=== PATIENT | female | born 1995 | race Caucasian/White ===

== ENCOUNTER 2016-12-10 16:34 | Emergency (ER) | payer MEDICAID ==
[~2016-12-10] VITALS: Ht 154.9 cm; Wt 49.9 kg
[2016-12-10 16:50] VITALS: BP 126/96
--- NOTE | 2016-12-10 21:10 | NUR ---
PATIENT LEFT WITHOUT BEING SEEN BY DR. CHEN. NO FURTHER CARE PROVIDED FOR PATIENT.
== END 2016-12-10 21:10 | disposition left against medical advice (07) ==
LOC: MED 16:34
DX: N89.8 Other specified noninflammatory disorders of vagina (principal); Z53.21 Procedure and treatment not carried out due to patient leaving prior to being seen by health care provider

== ENCOUNTER 2016-12-13 15:10 | Emergency (ER) | payer MEDICAID ==
[~2016-12-13] VITALS: Ht 154.9 cm; Wt 49.9 kg
[~2016-12-13 15:10] MED LIST: TYLENOL
[2016-12-13 15:20] VITALS: BP 114/67
--- NOTE | 2016-12-13 19:34 | NUR ---
PATIENT AMBULATED TO ER BED 5.
--- NOTE | 2016-12-13 20:03 | NUR ---
Patient being evaluated by physician at bedside.
[2016-12-13] MEDS ORDERED: AZITHROMYCIN 250 MG TAB PO ONE (20:20)
[2016-12-13] MEDS ORDERED: cefTRIAXone 250 MG in LIDOCAINE 1% ED 0.9 ML IM ONE (20:20)
[2016-12-13 21:05] VITALS: BP 122/64
--- NOTE | 2016-12-13 21:05 | NUR ---
Patient discharged with v/s stable. Written and verbal after care instructions given and explained. Patient alert, oriented and verbalized understanding of instructions. Ambulatory with steady gait. All questions addressed prior to discharge. ID band removed. Patient advised to follow up with PMD. Rx of Phenergan DM given. Patient educated on indication of medication including possible reaction and side effects. Opportunity to ask questions provided and answered.
--- NOTE | 2016-12-16 17:55 | NUR ---
ADDENDUM: POSITIVE CHLAMYDIA.PATIENT CALLED AND PICKING UP PRESCRIPTION.
--- NOTE | 2016-12-16 17:55 | NUR ---
ADDENDUM: NEW PRESCRIPTION OF DOXYCYCLINE 100MG.TAKE 1 CAP. BID #20 CAPS
[2016-12-28] MEDS ORDERED: DOXYCYCLINE HY200 MG PO (15:49)
[2016-12-28] MEDS ORDERED: HURRICAINE MC (15:49)
[2016-12-28] MEDS ORDERED: TYLENOL325 M1 PO (15:49)
[2016-12-28] MEDS ORDERED: AMOXICILLIN500 MG PO (15:49)
[2016-12-28] MEDS ORDERED: MOTRIN600 MG PO (17:24)
== END 2016-12-13 21:05 | disposition home or self-care (01) ==
LOC: MED 15:10
DX: A64 Unspecified sexually transmitted disease (principal); J02.9 Acute pharyngitis, unspecified
CPT/HCPCS: 36415; 81002; 81025; 87491; 96372; 99283; J0696; J2001

== ENCOUNTER 2016-12-26 10:25 | Inpatient (IN) | payer MEDICAID ==
[~2016-12-26] VITALS: Ht 154.9 cm; Wt 45.4 kg
[2016-12-26 10:35] VITALS: BP 117/69
--- NOTE | 2016-12-26 10:41 | NUR ---
Pateint ambulated to bed 06.
--- NOTE | 2016-12-26 10:48 | NUR ---
PT PRESENTS TO ER W/C/O VAGINAL DISCHARGE;TONSILITIS AND FEVER. PT STATES SHE WAS SEEN 2 WEEKS AGO AND DX W/GONORRHEA BUT HAS NOT BEEN COMPLIANT W/ABX. PT HAS A SWOLLEN TONSIL;PT FEELS NAUSEOUS BUT DENIES VOMITTING;PT STATES VAGINAL DISCHARGE IS PINK IN COLOR AND HAS OFFENSIVE SMELL;MILD ITCHINESS ON GENITALIA;SKIN IS PINK/WARM/DRY; AAOX4 WITH EVEN AND STEADY GAIT; LUNGS CLEAR BL; HR EVEN AND REGULAR; PT DENIES ANY FEVER, CP, SOB, OR COUGH AT THIS TIME; PATIENT STATES PAIN OF 0/10 AT THIS TIME; VSS; PATIENT POSITIONED FOR COMFORT; HOB ELEVATED; BEDRAILS UP X2; BED DOWN. ALL MONITORS IN PLACED.
--- NOTE | 2016-12-26 11:03 | NUR ---
DR MARCANO AT BEDSIDE.
[2016-12-26] MEDS ORDERED: ONDANSETRON 4 MG/2 ML VIAL IVP ONE (11:40)
[2016-12-26] MEDS ORDERED: KETOROLAC 30 MG/ML VIAL IVP ONE (11:40)
[2016-12-26] MEDS ORDERED: NACL 0.9% 1,000 ML IV ONE (11:40)
[2016-12-26 12:02] LABS: BASOPHILS # (AUTO) 0.2 K/uL (0.00-0.22); BASOPHILS % (AUTO) 1.7 % (0.0-2.0); EOSINOPHILS # (AUTO) 0.2 K/uL (0-0.4); EOSINOPHILS % (AUTO) 1.3 % (0.0-4.0); HEMATOCRIT 40.1 % (36-48); HEMOGLOBIN 13.2 g/dL (12.0-16.0); LYMPHOCYTES # (AUTO) 0.6 K/uL (2.5-16.5); LYMPHOCYTES % (AUTO) 4.7 % (20.5-51.1); MEAN CORPUSCULAR HEMOGLOBIN 28 pg (27-31); MEAN CORPUSCULAR HGB CONC 33 g/dL (33-37); MEAN CORPUSCULAR VOLUME 86 fL (80-94); MONOCYTES # (AUTO) 0.6 K/uL (0.8-1.0); MONOCYTES % (AUTO) 4.1 % (1.7-9.3); NEUTROPHILS # (AUTO) 12.1 K/uL (1.8-7.7); NEUTROPHILS % (AUTO) 88.2 % (42.2-75.2); PLATELET COUNT (AUTO) 205 K/uL (140-450); RED BLOOD CELL COUNT(AUTO) 4.68 MIL/uL (4.20-5.40); RED CELL DISTRIBUTION WIDTH 12.5 % (11.6-13.7)
[2016-12-26 12:11] LABS: ANION GAP 13.8 (8-16); CALCIUM 8.6 mg/dL (8.5-10.1); CARBON DIOXIDE 26.8 mmol/L (21-32); CREATININE 0.9 mg/dL (0.6-1.3); POTASSIUM 3.6 mmol/L (3.5-5.1)
--- NOTE | 2016-12-26 12:12 | NUR ---
PT REFUSE TO TAKE TORADDOL AND ZOFRAN;CONVINCED AND EXPALINED TO PT THE BENEFITS OF TAKING THE MEDICATION AND RISK OF NOT TAKING IT;PT STILL REFUSES TO TAKE TORADOL AND ZOFRAN;
[2016-12-26 12:13] LABS: BILIRUBIN,URINE 1+ (NEGATIVE); BLOOD, URINE 3+ (NEGATIVE); COLOR,URINE YELLOW (YELLOW); LEUKOCYTE ESTERASE ,URINE NEGATIVE (NEGATIVE); NITRITE, URINE NEGATIVE (NEGATIVE); PH,URINE 5.5 (5.0-9.0); PROTEIN,URINE 1+ (NEGATIVE); UGLUCOSE NEGATIVE (NEGATIVE); UROBILINOGEN,URINE 0.2 EU/dL (0.2 - 1)
[2016-12-26 12:17] LABS: ALBUMIN 3.5 g/dL (3.4-5.0); TOTAL BILIRUBIN 0.7 mg/dL (0.0-1.0); TOTAL PROTEIN, SERUM 8.3 g/dL (6.4-8.2)
[2016-12-26 12:25] LABS: WHITE BLOOD COUNT (AUTO) 13.7 K/uL (4.8-10.8)
[2016-12-26 12:33] LABS: APPEARANCE,URINE HAZY (CLEAR); ICTOTEST POSITIVE (NEGATIVE)
[2016-12-26 12:34] LABS: WBC,URINE 0-5 (RARE) /HPF (0-5)
[2016-12-26 12:35] LABS: BACTERIA,URINE 1+ /HPF (None Seen); MUCUS,URINE 2+ /LPF (None Seen)
[2016-12-26] MEDS ORDERED: ACETAMINOPHEN 325 MG TAB ONE (12:53)
--- NOTE | 2016-12-26 12:55 | NUR ---
WENT TO INFORM ER MD ABOUT PT'S TEMPERATURE BUT HE'S ON BREAK;INFORMED TRIAGE NURSE ABOUT PT'S TEMPERATURE OF 102.1;ECONOMIC ADVISER SAYS GIVE 650 MG TYLENOL.
--- NOTE | 2016-12-26 12:58 | NUR ---
COOLING MEASURES DONE;
[2016-12-26] MEDS ORDERED: cefOXitin 2,000 MG in DEXTROSE 5% 50 ML IV ONE (13:45)
--- NOTE | 2016-12-26 13:50 | NUR ---
PT SITTING ON BED;MOTHER AT BEDSIDE;SAMY MCCARTY DISTRESS NOTED;WILL CONTINUE TO MONITOR PT.
[2016-12-26] MEDS ORDERED: LORazepam 2 MG/ML VIAL IVP ONE (14:00)
[2016-12-26] MEDS ORDERED: ONDANSETRON 4 MG/2 ML VIAL IVP PRN (15:20)
[2016-12-26] MEDS ORDERED: HYDROcodone/APAP 5/325 MG 1 TAB TAB PO PRN (15:20)
[2016-12-26] MEDS ORDERED: LORazepam 2 MG/ML VIAL IVP PRN (15:20)
[2016-12-26] MEDS ORDERED: MORPHINE SULFATE 2 MG/ML SYR IVP PRN (15:20)
[2016-12-26] MEDS ORDERED: DOXYCYCLINE 100 MG in DEXTROSE 5% 100 ML IV SCH ×2 (15:20→21:00)
--- NOTE | 2016-12-26 15:38 | NUR ---
Patient will be admitted to care of DR BARNEY. Admited to TELE. Will go to roOM 104 B. Belongings list completed. Report to ALIS DURAN.
[2016-12-26] MEDS: NACL 0.9% 1,000 ML IV SCH (15:39)
[2016-12-26 15:48] LABS: INR 1.3 (0.8-1.2)
[2016-12-26 16:00] VITALS: BP 119/74
--- NOTE | 2016-12-26 16:00 | NUR ---
2 ER NURSES BROUGHT PT TO UNIT ON [facility]. PT IS AMBULATORY. PT HAS R AC IV 22 G. SKIN INTACT. A&OX4. VS WNL EXCEPT FOR PULSE 111. PT DENIES PAIN AT THIS TIME. ATTACHED CONTROL ROOM SUPERVISOR. CALL LIGHT WITHIN REACH. PROVIDED WITH FOOD AND WATER. WILL ASSIST DR WITH PELVIC EXAM.
--- NOTE | 2016-12-26 16:20 | NUR ---
DR PERFORMED PELVIC EXAM AND GOT 2 CULTURES FROM VAGINA, 1 CULTURE FROM THROAT. WILL SEND TO LAB. PT TOLERATED WELL. WILL CONTINUE TO MONITOR. PROVIDED PT WITH MENSTRUAL PADS, PT IS ON HER PERIOD.
--- NOTE | 2016-12-26 17:00 | NUR ---
LAB STATED ANOTHER SAMPLE OF URINE IS NEEDED. PROVIDED PT WITH SPECIMEN CUP AND INSTRUCTED PT. PT VERBALIZED UNDERSTANDING.
--- NOTE | 2016-12-26 18:17 | NUR ---
DR. CHO IS AWARE OF PT'S HR, WHICH WENT UP TO 140S AND STAYS IN 130S FOR [address] LLANES PUT IN ORDERS.
[2016-12-26 18:34] LABS: AMPHETAMINE, URINE NEG. ng/ml (NEG <=1000); BARBITURATE, URINE NEG. ng/ml (NEG <=200); BENZODIAZEPINE, URINE NEG. ng/mL (NEG <=200); CANNABINOID, URINE NEG. ng/mL (NEG <=50); COCAINE, URINE NEG. ng/mL (NEG <=300); OPIATE, URINE NEG. ng/mL (NEG <=2000); PHENCYCLIDINE SCREEN,URINE NEG. ng/mL (NEG <=25)
[2016-12-26] MEDS ORDERED: PROPRANOLOL 20 MG TAB PO ONE (18:45)
--- NOTE | 2016-12-26 19:12 | NUR ---
ENDORSED CARE OF PT TO LINE SERVICE ATTENDANT NURSE AT BEDSIDE. PT IN STABLE CONDITION.
--- NOTE | 2016-12-26 19:30 | NUR ---
RECEIVED PT IN BED.AWAKE,ALERT AND ORIENTED.IVF INFUSING WELL.TELE IS ON AND SHOWING ST .RESP.UNLABORED IN RA.CALL LIGHT WITHIN REACH.NO C/O PAIN NOW.T=102.1.WILL CALL MD FOR TYLENOL ORDER.
[2016-12-26 20:00] VITALS: BP 115/64
[2016-12-26] MEDS: cefOXitin 2,000 MG in DEXTROSE 5% 100 ML IV SCH (20:20)
[2016-12-26] MEDS: ACETAMINOPHEN 325 MG TAB PO PRN (21:10)
--- NOTE | 2016-12-26 21:30 | NUR ---
TYLENOL FOR T=102.1 AND INDERAL 20MG PO FOR HIGH HR GIVEN.
--- NOTE | 2016-12-26 23:30 | NUR ---
HAS NO MORE FEVER.SLEEPING.HR IS SR NOW.DENIED ANY COMPLAIN.
[2016-12-27] VITALS: BP 100/61
[2016-12-27] MEDS: NACL 0.9% 1,000 ML IV SCH ×2 (00:29→17:26)
[2016-12-27] MEDS: cefOXitin 2,000 MG in DEXTROSE 5% 100 ML IV SCH ×4 (01:48→20:43)
[2016-12-27] MEDS: DOXYCYCLINE 100 MG in DEXTROSE 5% 100 ML IV SCH ×2 (03:47→16:23)
[2016-12-27 04:00] VITALS: BP 105/60
--- NOTE | 2016-12-27 04:05 | NUR ---
NO FEVER NOTED.HR IS SR.CALL LIGHT IN REACH.IVF IN PROGRESS.
--- NOTE | 2016-12-27 06:27 | NUR ---
CHANGED THE SITE OF IV TO LT FA IN 1ST ATTEMPT.IVF INFUSING WELL NOW.HAS NO MORE FEVER.CONDITION STABLE.
[2016-12-27 07:21] LABS: ANION GAP 12.9 (8-16); CALCIUM 8.4 mg/dL (8.5-10.1); CARBON DIOXIDE 26.9 mmol/L (21-32); CREATININE 0.8 mg/dL (0.6-1.3); MAGNESIUM 1.9 mg/dL (1.8-2.4); PHOSPHORUS 2.6 mg/dL (2.5-4.9); POTASSIUM 3.8 mmol/L (3.5-5.1); TOTAL BILIRUBIN 0.7 mg/dL (0.0-1.0); TOTAL PROTEIN, SERUM 7.7 g/dL (6.4-8.2)
[2016-12-27 07:24] LABS: ANION GAP 12.9 (8-16); CALCIUM 8.4 mg/dL (8.5-10.1); CARBON DIOXIDE 26.8 mmol/L (21-32); CREATININE 0.8 mg/dL (0.6-1.3); POTASSIUM 3.7 mmol/L (3.5-5.1)
--- NOTE | 2016-12-27 07:25 | NUR ---
RECEIVED PT REPORT AT BEDSIDE FROM NIGHT NURSE. PT IS AAOX4 AND SHOWS NO S/S OF DISTRESS NOTED ON ROOM AIR. PT IN ON TELE MONITORING. SKIN IS INTACT. PT BED IS LOWERED WITH CALL LIGHT WITHIN REACH.
[2016-12-27] MEDS ORDERED: BENZOCAINE 20% 57 GM CAN MC PRN (08:40)
--- NOTE | 2016-12-27 09:00 | NUR ---
ADMINISTERED SCHEDULED MEDICATIONS. PT SHOWS NO S/S OF DISTRESS NOTED ON ROOM AIR.
--- NOTE | 2016-12-27 09:25 | NUR ---
PATIENT HAS BEEN SCREENED AND CATEGORIZED LOW NUTRITION RISK. PATIENT WILL BE SEEN WITHIN 7 DAYS OF ADMISSION. 01/02/17 JEFF LARA MBA, RD
[2016-12-27 09:44] LABS: BASOPHILS # (AUTO) 0.1 K/uL (0.00-0.22); BASOPHILS % (AUTO) 0.8 % (0.0-2.0); EOSINOPHILS # (AUTO) 0.2 K/uL (0-0.4); EOSINOPHILS % (AUTO) 1.6 % (0.0-4.0); HEMOGLOBIN 12.8 g/dL (12.0-16.0); LYMPHOCYTES # (AUTO) 0.9 K/uL (2.5-16.5); LYMPHOCYTES % (AUTO) 6.8 % (20.5-51.1); MEAN CORPUSCULAR HEMOGLOBIN 28 pg (27-31); MEAN CORPUSCULAR HGB CONC 33 g/dL (33-37); MEAN CORPUSCULAR VOLUME 86 fL (80-94); MONOCYTES # (AUTO) 1.2 K/uL (0.8-1.0); MONOCYTES % (AUTO) 9.4 % (1.7-9.3); NEUTROPHILS # (AUTO) 10.7 K/uL (1.8-7.7); NEUTROPHILS % (AUTO) 81.4 % (42.2-75.2); PLATELET COUNT (AUTO) 194 K/uL (140-450); RED BLOOD CELL COUNT(AUTO) 4.55 MIL/uL (4.20-5.40); RED CELL DISTRIBUTION WIDTH 12.4 % (11.6-13.7)
--- NOTE | 2016-12-27 09:45 | NUR ---
PT C/O HEADACHE. PT TEMP IS 99.2. WILL ADMINISTER PRN TYLENOL 650MG.
[2016-12-27] MEDS: ACETAMINOPHEN 325 MG TAB PO PRN ×2 (09:51→21:37)
--- NOTE | 2016-12-27 10:15 | NUR ---
PT AMB TO BATHROOM WITH STEADY GAIT. PT HAD A BM.
[2016-12-27 10:21] LABS: WHITE BLOOD COUNT (AUTO) 13.1 K/uL (4.8-10.8)
[2016-12-27] MEDS: IBUPROFEN 600 MG TAB PO SCH ×2 (12:00→17:15)
[2016-12-27] MEDS: guaiFENesin DM 200/20 MG-10 ML 10 ML UDC PO PRN (12:24)
--- NOTE | 2016-12-27 12:30 | NUR ---
PT HAS VISITORS AT BEDSIDE. PT SHOWS NO S/S OF DISTRESS NOTED.
--- NOTE | 2016-12-27 14:50 | NUR ---
PT IN ROOM WITH MOTHER. PT SHOWS NO S/S OF DISTRESS ON ROOM AIR.
[2016-12-27 16:00] VITALS: BP 97/67
--- NOTE | 2016-12-27 16:20 | NUR ---
PT BEING SEEN BY ICT CUSTOMER SUPPORT OFFICER. PT SHOWS NO S/S OF DISTRESS NOTED ON ROOM AIR.
--- NOTE | 2016-12-27 16:45 | NUR ---
PT IS EATING AND TOLERATING MEAL WELL. ADMINISTERED SCHEDULED MEDICATIONS. PT SHOWS NO S/S OF DISTRESS NOTED ON ROOM AIR. WILL CONTINUE TO MONITOR.
--- NOTE | 2016-12-27 18:23 | NUR ---
PT STATES IV IS HURTING HER. IV IS PATENT AND INTACT. PT STATES IT STILL HURTS WILL REASSESS IF NEEDED NEW IV IS NECESSARY.
--- NOTE | 2016-12-27 19:25 | NUR ---
RECEIVED FROM AM RN IN BED AWAKE AND SITTING UP AT THE EDGE OF BED TALKING TO VISITOR. NO SOB. PT. IS VERBALIZING WELL. DENIES PAIN AT THIS TIME. CHECKED IVF SITE. GOOD BLOOD RETURN. OFFERED TO HAVE NEW IVF SITE INSERTED. "NO"..NOT HURTING ANYMORE. CARE PLANS FOR THE NIGHT DISCUSSED WITH HER. CALL LIGHT WITH IN REACH. RAPID RESPONSE DISCUSSED WITH HER. SPEAKS GREEK WELL. DX. OF PELVIC INFECTION. AFEBRILE.
--- NOTE | 2016-12-27 19:25 | NUR ---
REASSESSED PT IV. PT STATES IT IS DOING BETTER. NIGHT NURSE IS AWARE OF IV HURTING PT. GAVE REPORT TO FANY SNELL. PT ENDORSED IN STABLE CONDITION.
--- NOTE | 2016-12-27 21:58 | NUR ---
MEDICATED WITH TYLENOL P.O. RT COMPLAINED OF HEADACHE. ABLE TO VERBALIZE NEEDS WELL. NO SOB. ABLE TO USE CALL LIGHT FOR HELP. PT. ROM X 4. FEMALE COUSIN WITH PT. AND STAYING OVER NIGHT REQUESTED RT PT. SCARED TO BE LEFT ALONE.
--- NOTE | 2016-12-27 23:53 | NUR ---
SLEEPING AT THIS TIME. NO RESTLESSNESS NOTED. CALL LIGHT WITH IN REACH AT ALL TIMES.
[2016-12-27 23:56] VITALS: BP 102/68
[2016-12-28] MEDS: cefOXitin 2,000 MG in DEXTROSE 5% 100 ML IV SCH ×3 (02:27→14:00)
[2016-12-28] MEDS: NACL 0.9% 1,000 ML IV SCH ×2 (02:28→18:26)
[2016-12-28] MEDS: DOXYCYCLINE 100 MG in DEXTROSE 5% 100 ML IV SCH ×2 (04:37→16:00)
--- NOTE | 2016-12-28 07:10 | NUR ---
RECEIVED PT REPORT AT BEDSIDE. PT IS AAOX4 AND SHOWS NO S/S OF DISTRESS ON ROOM AIR. PT SKIN IS INTACT. PT DENIES PAIN. IVF RUNNING ON THE R HAND. PT BED IS LOWERED WITH CALL LIGHT WITHIN REACH.
[2016-12-28 07:30] LABS: BASOPHILS # (AUTO) 0.1 K/uL (0.00-0.22); BASOPHILS % (AUTO) 1.2 % (0.0-2.0); EOSINOPHILS # (AUTO) 0.2 K/uL (0-0.4); EOSINOPHILS % (AUTO) 1.9 % (0.0-4.0); HEMATOCRIT 36.7 % (36-48); HEMOGLOBIN 12.2 g/dL (12.0-16.0); LYMPHOCYTES # (AUTO) 1.4 K/uL (2.5-16.5); LYMPHOCYTES % (AUTO) 17.2 % (20.5-51.1); MEAN CORPUSCULAR HEMOGLOBIN 28 pg (27-31); MEAN CORPUSCULAR HGB CONC 33 g/dL (33-37); MEAN CORPUSCULAR VOLUME 84 fL (80-94); MONOCYTES # (AUTO) 0.9 K/uL (0.8-1.0); MONOCYTES % (AUTO) 11.1 % (1.7-9.3); NEUTROPHILS # (AUTO) 5.4 K/uL (1.8-7.7); NEUTROPHILS % (AUTO) 68.6 % (42.2-75.2); PLATELET COUNT (AUTO) 161 K/uL (140-450); RED BLOOD CELL COUNT(AUTO) 4.35 MIL/uL (4.20-5.40); RED CELL DISTRIBUTION WIDTH 12.7 % (11.6-13.7)
[2016-12-28 07:32] LABS: ANION GAP 11.5 (8-16); CALCIUM 8.7 mg/dL (8.5-10.1); CARBON DIOXIDE 28.6 mmol/L (21-32); CREATININE 0.8 mg/dL (0.6-1.3); POTASSIUM 4.1 mmol/L (3.5-5.1)
[2016-12-28 07:33] LABS: MAGNESIUM 2.1 mg/dL (1.8-2.4)
[2016-12-28] MEDS: IBUPROFEN 600 MG TAB PO SCH ×3 (08:12→17:00)
--- NOTE | 2016-12-28 08:15 | NUR ---
ADMINISTERED SCHEDULED MEDICATIONS. PT TOLERATED WELL. PT SAT UP TO EAT BREAKFAST. PT STATED SHE WOULD LIKE MEDICATION FOR PHLEGM. WILL ADMINISTER.
[2016-12-28 08:29] VITALS: BP 106/69
[2016-12-28] MEDS: guaiFENesin DM 200/20 MG-10 ML 10 ML UDC PO PRN (08:48)
--- NOTE | 2016-12-28 08:52 | NUR ---
PT IN BED EATING BREAKFAST AND TOLERATING WELL. PT SHOWS NO S/S OF DISTRESS ON ROOM AIR. ADMINISTERED PRN MEDICATION. PT IN STABLE CONDITION.
--- NOTE | 2016-12-28 10:30 | NUR ---
PT STATES SHE FEEL ANXIOUS AND HEAR RACING. SHE STATES SHE FEELS ANXIETY WHEN SHE IS LEFT ALONE. PT HR AT 120 O2 SAT 100% RESPIRATION 20. PT HAS PRN ANXIETY MEDICATION WILL ADMINISTER.
--- NOTE | 2016-12-28 10:45 | NUR ---
ADMINISTERED PRN ANTI ANXIETY MEDICAITON. PT HR IS 95, O2 SAT 99% RESPIRATIONS 20. PT HAS FAMILY VISITORS. PT SHOWS NO S/S OF DISTRESS NOTED ON ROOM AIR.
--- NOTE | 2016-12-28 13:00 | NUR ---
PT ATE LUNCH AND TOLERATED WELL. PT SHOWS NO S/S OF DISTRESS AT THIS TIME
--- NOTE | 2016-12-28 14:00 | NUR ---
TRIED TO FLUSH IV SITE WITH NS HOWEVER PT IV WILL NOT FLUSH. PT IV DISCONTINUED WITH CANNULA INTACT.
--- NOTE | 2016-12-28 14:20 | NUR ---
PT HAS NO IV ACCESS. ATTEMPTED 2X. WILL ASK EMILI RN TO PERFORM IV INSERTION. CANNOT GIVE SCHEDULE MEDICATION AT THIS TIME.
--- NOTE | 2016-12-28 15:33 | NUR ---
RECEIVED ORDERS FOR DISCHARGE OKAY BY DR. MATOS.
[2016-12-28] MEDS ORDERED: DOXY200T2 PO (15:49)
[2016-12-28] MEDS ORDERED: AMOX500C25 PO (15:49)
[2016-12-28] MEDS ORDERED: BENZSPR MC (15:49)
[2016-12-28] MEDS ORDERED: ACET-2619 PO (15:49)
[2016-12-28 16:00] VITALS: BP 133/91
--- NOTE | 2016-12-28 16:00 | NUR ---
PT WALKED AROUND UNIT. PT SHOWS NO S/S OF DISTRESS NOTED ON ROOM AIR. PT IN STABLE CONDITION.
--- NOTE | 2016-12-28 16:24 | NUR ---
LABORATORY CALLED ABOUT PENDING STREP THROAT CULTURE. DR MATOS AWARE. STAT ORDER FOR STREP THROAT CULTURE PERFORMED. SENT TO LABORATORY
--- NOTE | 2016-12-28 17:20 | NUR ---
LABORATORY CALLED REGARDING A PENDING ORDER FOR VAGINAL WET MOUNT. DR CARLO CABRERA MD STATES TO PERFORM A VAGINAL WET MOUNT CULTURE FOR PT. VAGINAL WET MOUNT CULTURE TAKEN TO LABORATORY.
[2016-12-28] MEDS ORDERED: IBUP-2213 PO (17:24)
--- NOTE | 2016-12-28 17:30 | NUR ---
PT HAS BEEN DISCHARGED. ALL DISCHARGED INSTRUCTIONS AND PRESCRIPTIONS GIVEN. ALL QUESTIONS ANSWERED. PT VERBALIZED UNDERSTANDING. ALL BELONGINGS AND PRESCRIPTIONS IN PATIENT POSSESSION. WRISTBANDS REMOVED. OFFERED PATIENT WHEELCHAIR, PT REFUSED. PT AMB OUT OF UNIT WITH STEADY GAIT WITH FAMILY PRESENT AT SIDE. PATIENT IN STABLE CONDITION.
--- NOTE | 2016-12-29 08:20 | NUR ---
RETRO H&P AND MUSIC FAXED TO [facility] [phone] PHONE GOLD [phone]
[2016-12-30 06:53] LABS: CHLAMYDIA TRACHOMATIS AMP DNA Negative (Negative)
--- NOTE | 2017-01-01 11:39 | NUR ---
PER FAX REQUEST CLINICAL DOCUMENTATION SENT TO SAQIB JOVEL AT [facility] [phone] X [phone], FAX [phone] INCLUDED EDMD NOTE, H&P, DC SUMMARY.
== END 2016-12-28 17:30 | disposition home or self-care (01) | DRG 720 ==
LOC: MED 10:25 → MTU 15:20
PROVIDERS: ADMIT Family Medicine; ATTEND Family Medicine
DX: A41.9 Sepsis, unspecified organism (principal); N17.0 Acute kidney failure with tubular necrosis; E44.0 Moderate protein-calorie malnutrition; N73.9 Female pelvic inflammatory disease, unspecified; J02.0 Streptococcal pharyngitis; A74.9 Chlamydial infection, unspecified; A54.9 Gonococcal infection, unspecified; N83.202 Unspecified ovarian cyst, left side; R31.9 Hematuria, unspecified; F17.210 Nicotine dependence, cigarettes, uncomplicated; N39.0 Urinary tract infection, site not specified; Z72.89 Other problems related to lifestyle; Z68.1 Body mass index [BMI] 19.9 or less, adult
CPT/HCPCS: 36415; 71010; 76700; 76856; 80048; 80053; 80305; 81001; 83735; 84100; 84703; 85025; 85610; 85730; 87040; 87070; 87075; 87081; 87086; 87205; 87210; 87491; 93005; 96361; 96365; 96367; 96375; 99285; G0482; J0694; J0696; J1885; J2060; J2405; J3490; J7030; J7060; Q0092

== ENCOUNTER 2017-04-01 23:40 | Emergency (ER) | payer MEDICAID ==
[~2017-04-01] VITALS: Ht 157.5 cm; Wt 52.2 kg
[~2017-04-01 23:40] MED LIST changes: +BENZSPR MC; +DOXY200T2 PO; +IBUP-2213 PO; -TYLENOL
[2017-04-01 23:44] VITALS: BP 132/90
--- NOTE | 2017-04-02 00:02 | NUR ---
PT TAKEN TO BED 5
--- NOTE | 2017-04-02 00:06 | NUR ---
Dr. Acevedo evaluating patient at bedside.
[2017-04-02] MEDS ORDERED: AZITHROMYCIN 250 MG TAB PO ONE (00:15)
[2017-04-02] MEDS ORDERED: cefTRIAXone 250 MG in LIDOCAINE 1% ED 0.9 ML IM ONE (00:15)
--- NOTE | 2017-04-02 00:25 | NUR ---
ROCEPHIN 250 MG IM AND ZITHROMAX 1000 MG PO GIVEN ORDERED.
--- NOTE | 2017-04-02 00:29 | NUR ---
X-Ray at bedside.
--- NOTE | 2017-04-02 01:30 | NUR ---
Patient discharged with v/s stable. Written and verbal after care instructions given and explained. Patient alert, oriented and verbalized understanding of instructions. Ambulatory with steady gait. All questions addressed prior to discharge. ID band removed. Patient advised to follow up with PMD. Rx of COLACE given. Patient educated on indication of medication including possible reaction and side effects. Opportunity to ask questions provided and answered.
[2017-04-02 01:56] VITALS: BP 117/79
== END 2017-04-02 01:30 | disposition home or self-care (01) ==
LOC: MED 23:40
DX: K59.00 Constipation, unspecified (principal); A64 Unspecified sexually transmitted disease; R03.0 Elevated blood-pressure reading, without diagnosis of hypertension
CPT/HCPCS: 74000; 81002; 81025; 96372; 99283; J0696; J2001; Q0092

== ENCOUNTER 2017-05-29 16:29 | Emergency (ER) | payer MEDICAID ==
[~2017-05-29] VITALS: Ht 157.5 cm; Wt 52.6 kg
[2017-05-29 16:52] VITALS: BP 138/77
--- NOTE | 2017-05-29 17:28 | NUR ---
PATIENT PRESENTS TO ED WITH C/O LT MID ABDOMINAL PAIN SINCE LAST NIGHT WITH NAUSEA; DENIES V/D; ALSO C/O OF VAGINAL ITCHING WITH FOUL SMELLING DISCHARGED;SKIN IS PINK/WARM/DRY; AAOX4 WITH EVEN AND STEADY GAIT; LUNGS CLEAR BL; HR EVEN AND REGULAR; PT DENIES ANY FEVER, CP, SOB, OR COUGH AT THIS TIME; PATIENT STATES PAIN OF 9/10 AT THIS TIME;PATIENT POSITIONED FOR COMFORT; HOB ELEVATED; BEDRAILS UP X2; BED DOWN. ER MD MADE AWARE OF PT STATUS.
--- NOTE | 2017-05-29 18:35 | NUR ---
PT RESTING ON BED;ACUTE DISTRESS NOTED;WILL CONTINUE TO MONITOR PT.
--- NOTE | 2017-05-29 19:15 | NUR ---
Pt report given to AIMEE SNELL. Transfer of care at this time.
[2017-05-29 19:16] LABS: MEAN CORPUSCULAR VOLUME 87 fL (80-94); WHITE BLOOD COUNT (AUTO) 11.4 K/uL (4.8-10.8)
[2017-05-29 19:21] LABS: HEMATOCRIT 40.9 % (36-48); HEMOGLOBIN 13.7 g/dL (12.0-16.0); MEAN CORPUSCULAR HEMOGLOBIN 29 pg (27-31); MEAN CORPUSCULAR HGB CONC 34 g/dL (33-37); PLATELET COUNT (AUTO) 252 K/uL (140-450); RED BLOOD CELL COUNT(AUTO) 4.73 MIL/uL (4.20-5.40); RED CELL DISTRIBUTION WIDTH 13.8 % (11.6-13.7)
[2017-05-29 19:23] LABS: APPEARANCE,URINE CLEAR (CLEAR); BILIRUBIN,URINE NEGATIVE (NEGATIVE); BLOOD, URINE NEGATIVE (NEGATIVE); COLOR,URINE ORANGE (YELLOW); LEUKOCYTE ESTERASE ,URINE NEGATIVE (NEGATIVE); NITRITE, URINE NEGATIVE (NEGATIVE); UGLUCOSE NEGATIVE (NEGATIVE)
[2017-05-29 19:32] LABS: ANION GAP 13.4 (8-16); CARBON DIOXIDE 25.1 mmol/L (21-32); CREATININE 0.5 mg/dL (0.6-1.3); POTASSIUM 3.5 mmol/L (3.5-5.1)
[2017-05-29 19:34] LABS: PROTHROMBIN TIME 9.8 secs (10.8-13.4)
[2017-05-29 19:38] LABS: BASOPHILS % (MANUAL) 0 % (0-2); EOSINOPHILS % (MANUAL) 0 % (0-4); LYMPHOCYTES % (MANUAL) 18 % (20-46); MONOCYTES % (MANUAL) 4 % (5-12)
[2017-05-29 19:47] LABS: ALBUMIN 3.6 g/dL (3.4-5.0); THYROID STIMULATING HORMONE 1.37 uIU/mL (0.34-3.74); TOTAL BILIRUBIN 0.2 mg/dL (0.0-1.0)
[2017-05-29 21:47] VITALS: BP 127/80
--- NOTE | 2017-05-29 21:47 | NUR ---
Patient discharged with v/s stable. Written and verbal after care instructions given and explained. Patient verbalized understanding. Ambulatory with steady gait. All questions addressed prior to discharge. Advised to follow up with PMD.
== END 2017-05-29 21:47 | disposition home or self-care (01) ==
LOC: MED 16:29
DX: O20.0 Threatened abortion (principal); Z3A.12 12 weeks gestation of pregnancy
CPT/HCPCS: 36415; 76801; 80053; 81003; 81025; 84443; 84702; 85025; 85610; 85730; 86900; 86901; 99285; Q0092

== ENCOUNTER 2017-10-04 12:30 | Observation (INO) | payer MEDICAID ==
[~2017-10-04] VITALS: Ht 157.5 cm; Wt 59.0 kg
[2017-10-04] MEDS ORDERED: PREN-380 PO (12:48)
[2017-10-04] MEDS ORDERED: LACTATED RINGERS 1,000 ML IV SCH (12:50)
[2017-10-04] MEDS ORDERED: TERBUTALINE 1 MG/ML VIAL SUBQ SCH (12:50)
[2017-10-04] MEDS ORDERED: TERBUTALINE 1 MG/ML VIAL SUBQ ONE (12:54)
[2017-10-04 13:03] VITALS: BP 125/85
== END 2017-10-04 16:17 | disposition home or self-care (01) ==
LOC: MLD 12:30
PROVIDERS: ADMIT Obstetrics & Gynecology; ATTEND Obstetrics & Gynecology
DX: O26.893 Other specified pregnancy related conditions, third trimester (principal); R42 Dizziness and giddiness; Z3A.32 32 weeks gestation of pregnancy
CPT/HCPCS: 59025; 76805; 96360; 96361; 96372; G0378; J3105; J7120; Q0092

== ENCOUNTER 2018-12-10 11:56 | Emergency (ER) | payer OTHER ==
[~2018-12-10] VITALS: Ht 157.5 cm; Wt 49.9 kg
[~2018-12-10 11:56] MED LIST changes: -BENZSPR MC; -DOXY200T2 PO; -IBUP-2213 PO; +PREN-380 PO
[2018-12-10 12:09] VITALS: BP 134/58
--- NOTE | 2018-12-10 12:22 | NUR ---
Patient ambulated to bed 7 with family. RN evaluating patient at bedside.
--- NOTE | 2018-12-10 12:25 | NUR ---
Dr. Rosario evaluating patient at bedside.
--- NOTE | 2018-12-10 12:30 | NUR ---
C/O EYE DISCHARGE AND DRY EYE IN MORNINGS. PT STATES SHE DOESN'T WANT TO GET PINK EYE FROM DAUGHTER. PT REPORTS DRY COUGH. DENIES PAIN AT THIS TIME. MEDHX:DENIES RX:DENIES
[2018-12-10 13:36] VITALS: BP 130/64
--- NOTE | 2018-12-10 13:36 | NUR ---
Patient discharged with v/s stable. Written and verbal after care instructions given and explained. Patient alert, oriented and verbalized understanding of instructions. Ambulatory with steady gait. All questions addressed prior to discharge. ID band removed. Patient advised to follow up with PMD. Rx of claritin and erythromycin given. Patient educated on indication of medication including possible reaction and side effects. Opportunity to ask questions provided and answered.
== END 2018-12-10 13:36 | disposition home or self-care (01) ==
LOC: MED 11:56
DX: J06.9 Acute upper respiratory infection, unspecified (principal); H10.9 Unspecified conjunctivitis; B96.89 Other specified bacterial agents as the cause of diseases classified elsewhere; Z79.899 Other long term (current) drug therapy
CPT/HCPCS: 99283

== ENCOUNTER 2019-08-30 21:14 | Emergency (ER) | payer MEDICAID, OTHER ==
[~2019-08-30] VITALS: Ht 157.5 cm; Wt 49.9 kg
[2019-08-30 21:30] VITALS: BP 138/88
--- NOTE | 2019-08-30 21:37 | NUR ---
PT TRIAGED, SENT BACK TO LOBBY AWAITING FOR BED
--- NOTE | 2019-08-30 21:53 | NUR ---
24 YEAR OLD FEMALE COMPLAINS OF FEVER, SORETHROAT AND HEADACHE X 3 DAYS. PATIENT STATES SHE IS TAKING MISOPROSTOL FOR . PATIENT DENIES ANY PAIN OR SOB. PATIENT AOX4, BREATHING EVEN AND UNLABORED, LUNGS CTABL. SKIN WARM AND DRY. BED IN LOWEST POSITION, LOCKED, BED RAIL UPX1. PMH - HTN
--- NOTE | 2019-08-30 22:34 | NUR ---
Dr. Lino examining patient.
[2019-08-30] MEDS ORDERED: PENICILLIN G BENZATHINE L-A 1.2 MU/2 ML SYR IM ONE (22:40)
[2019-08-30 23:11] VITALS: BP 138/88
--- NOTE | 2019-08-30 23:11 | NUR ---
Patient discharged with v/s stable. Written and verbal after care instructions ABOUT STREP THROAT given and explained. Patient alert, oriented and verbalized understanding of instructions. Ambulatory with steady gait. All questions addressed prior to discharge. ID band removed. Patient advised to follow up with PMD. Rx of MOTRIN AND PREDNISONE given. Patient educated on indication of medication including possible reaction and side effects. Opportunity to ask questions provided and answered.
== END 2019-08-30 23:11 | disposition home or self-care (01) ==
LOC: MED 21:14
DX: J02.0 Streptococcal pharyngitis (principal); Z79.899 Other long term (current) drug therapy
CPT/HCPCS: 96372; 99283; J0561

== ENCOUNTER 2019-12-27 19:26 | Emergency (ER) | payer MEDICAID ==
[~2019-12-27] VITALS: Ht 157.5 cm; Wt 48.5 kg
[2019-12-27 19:31] VITALS: BP 143/92
--- NOTE | 2019-12-27 19:44 | NUR ---
PT AMBULATED TO BED 4 WITH STEADY GAIT
--- NOTE | 2019-12-27 20:03 | NUR ---
PA REMY WITH PT
[2019-12-27 20:27] LABS: BASOPHILS # (AUTO) 0.1 K/uL (0.00-0.22); BASOPHILS % (AUTO) 1.2 % (0.0-2.0); EOSINOPHILS # (AUTO) 0.1 K/uL (0-0.4); EOSINOPHILS % (AUTO) 1.2 % (0.0-4.0); HEMATOCRIT 36.2 % (36-48); HEMOGLOBIN 11.8 g/dL (12.0-16.0); LYMPHOCYTES # (AUTO) 1.8 K/uL (2.5-16.5); LYMPHOCYTES % (AUTO) 32.5 % (20.5-51.1); MEAN CORPUSCULAR HEMOGLOBIN 28 pg (27-31); MEAN CORPUSCULAR HGB CONC 33 g/dL (33-37); MEAN CORPUSCULAR VOLUME 86.1 fL (80-94); MONOCYTES # (AUTO) 0.4 K/uL (0.8-1.0); MONOCYTES % (AUTO) 8.1 % (1.7-9.3); NEUTROPHILS # (AUTO) 3.1 K/uL (1.8-7.7); PLATELET COUNT (AUTO) 296 K/uL (140-450); RED BLOOD CELL COUNT(AUTO) 4.21 MIL/uL (4.20-5.40); RED CELL DISTRIBUTION WIDTH 14.4 % (11.6-13.7); WHITE BLOOD COUNT (AUTO) 5.5 K/uL (4.8-10.8)
--- NOTE | 2019-12-27 20:30 | NUR ---
24 Y/O F PRESENTS TO ED C/O VAGINAL SMELL AND DISCOMFORT X 1 WEEK. PT STATES SHE TOOK PILLS ON 12/18 AND HAD UNRPOTECTED SEX A FEW DAYS LATER. PT STATES VAGINAL SMELL AND DISCOMFORT STARTED ON 12/23. PT DENIES PAINFUL URINATION AND VAGINAL DISCHARGE. BED IN LOWEST POSITION, SIDE RAIL UP X1. WILL CONTINUE TO MONITOR. PMHX: NKA
--- NOTE | 2019-12-27 20:37 | NUR ---
US AT BEDSIDE.
[2019-12-27 20:43] LABS: BILIRUBIN,URINE NEGATIVE (NEGATIVE); BLOOD, URINE TRACE-I (NEGATIVE); LEUKOCYTE ESTERASE ,URINE NEGATIVE (NEGATIVE); NITRITE, URINE NEGATIVE (NEGATIVE); UGLUCOSE NEGATIVE (NEGATIVE)
[2019-12-27 20:56] LABS: ALBUMIN 3.8 g/dL (3.4-5.0); ANION GAP 13.3 (8-16); CREATININE 0.8 mg/dL (0.6-1.3); POTASSIUM 3.3 mmol/L (3.5-5.1); TOTAL BILIRUBIN 0.5 mg/dL (0.0-1.0)
[2019-12-27 20:58] LABS: APPEARANCE,URINE CLEAR (CLEAR); COLOR,URINE YELLOW (YELLOW)
[2019-12-27] MEDS ORDERED: AZITHROMYCIN 250 MG TAB PO ONE (21:05)
[2019-12-27] MEDS ORDERED: cefTRIAXone 250 MG in LIDOCAINE MPF 1% 0.9 ML IM ONE (21:05)
--- NOTE | 2019-12-27 21:05 | NUR ---
Pelvic exam performed by PATRICE ALBERTO with ALIS GLORIA at bedside for entire examination. Patient tolerated procedurE. Patient assisted to position of comfort after examination.
[2019-12-27 21:07] LABS: RBC,URINE 0-5 /HPF (0-5); WBC,URINE 0-5 /HPF (0-5)
[2019-12-27] MEDS ORDERED: cefTRIAXone 250 MG VIAL ONE (21:15)
[2019-12-27] MEDS ORDERED: DOXYCYCLINE 100 MG CAP PO SCH (21:15)
[2019-12-27] MEDS ORDERED: LIDOCAINE MPF 1% 0 ML ONE (21:15)
--- NOTE | 2019-12-27 21:33 | NUR ---
PT REFUSED XYLOCAINE. PATRICE ALBERTO MADE AWARE. PER PATRICE ALBERTO, RICARDA TO GIVE ROCEPHIN WITH 0.9 ML NS.
--- NOTE | 2019-12-27 21:35 | NUR ---
PER STEPHANIE HILARIO TO GIVE 100 MG DOXYCYCLINE P.O.
--- NOTE | 2019-12-27 21:44 | NUR ---
PT RESTING IN BED, RR EVEN AND UNLABORED. NO NEW COMPLAINS AT THIS TIME. BED IN LOWEST POSITION, SIDE RAIL UP X1. WILL CONTINUE TO MONITOR.
[2019-12-27 21:57] VITALS: BP 143/92
--- NOTE | 2019-12-27 21:58 | NUR ---
Patient discharged with v/s stable. Written and verbal after care instructions given and explained. Patient alert, oriented and verbalized understanding of instructions. Ambulatory with steady gait. All questions addressed prior to discharge. ID band removed. Patient advised to follow up with PMD. Rx of DOXYCYCLINE, FLAGYL, IBUPROFEN given. Patient educated on indication of medication including possible reaction and side effects. Opportunity to ask questions provided and answered.
[2019-12-30 06:17] LABS: CHLAMYDIA TRACHOMATIS AMP DNA Negative (Negative)
== END 2019-12-27 21:58 | disposition home or self-care (01) ==
LOC: MED 19:26
DX: O73.0 Retained placenta without hemorrhage (principal); R03.0 Elevated blood-pressure reading, without diagnosis of hypertension; Z11.3 Encounter for screening for infections with a predominantly sexual mode of transmission; Z79.899 Other long term (current) drug therapy
CPT/HCPCS: 36415; 76856; 80053; 81001; 81025; 83690; 84702; 85025; 87210; 93976; 96372; 99284; J0696; Q0092; J2001

== ENCOUNTER 2023-06-08 20:45 | Emergency (ER) | payer MEDICAID, OTHER ==
[~2023-06-08] VITALS: Ht 157.5 cm; Wt 56.7 kg
[2023-06-08 21:26] VITALS: BP 130/82; PULSE 84; RESP 18; TEMP 98.8; O2SAT 100
[2023-06-08 22:23] LABS: BASOPHILS # (AUTO) 0.1 K/uL (0.00-0.22); BASOPHILS % (AUTO) 1.1 % (0.0-2.0); EOSINOPHILS # (AUTO) 0.2 K/uL (0-0.4); EOSINOPHILS % (AUTO) 2.4 % (0.0-4.0); HEMATOCRIT 36.4 % (36-48); LYMPHOCYTES # (AUTO) 2.9 K/uL (2.5-16.5); LYMPHOCYTES % (AUTO) 43.9 % (20.5-51.1); MEAN CORPUSCULAR HEMOGLOBIN 29 pg (27-31); MEAN CORPUSCULAR HGB CONC 33 g/dL (33-37); MONOCYTES # (AUTO) 0.5 K/uL (0.8-1.0); MONOCYTES % (AUTO) 7.6 % (1.7-9.3); NEUTROPHILS # (AUTO) 2.9 K/uL (1.8-7.7); PLATELET COUNT (AUTO) 337 K/uL (140-450); RED BLOOD CELL COUNT(AUTO) 4.09 MIL/uL (4.20-5.40); RED CELL DISTRIBUTION WIDTH 13.2 % (11.6-13.7); WHITE BLOOD COUNT (AUTO) 6.5 K/uL (4.8-10.8)
[2023-06-08 22:38] LABS: ANION GAP 9.7 (8-16); CALCIUM 9.3 mg/dL (8.5-10.1); CARBON DIOXIDE 30.4 mmol/L (21-32); CREATININE 0.8 mg/dL (0.6-1.3); POTASSIUM 4.1 mmol/L (3.5-5.1)
[2023-06-08 23:13] LABS: APPEARANCE,URINE CLEAR (CLEAR); BILIRUBIN,URINE NEGATIVE (NEGATIVE); BLOOD, URINE NEGATIVE (NEGATIVE); COLOR,URINE YELLOW (YELLOW); LEUKOCYTE ESTERASE ,URINE NEGATIVE (NEGATIVE); NITRITE, URINE NEGATIVE (NEGATIVE); PROTEIN,URINE NEGATIVE (NEGATIVE); UGLUCOSE NEGATIVE (NEGATIVE); UROBILINOGEN,URINE 0.2 EU/dL (0.2 - 1)
[2023-06-08] MEDS ORDERED: CEPH-588 PO (23:42)
[2023-06-08] MEDS ORDERED: BACTO TP (23:42)
[2023-06-09 01:11] VITALS: O2SAT 100
[2023-06-09 03:00] VITALS: BP 125/83; PULSE 77; RESP 14; O2SAT 98
[2023-06-09] MEDS ORDERED: METR-520 PO (03:21)
== END 2023-06-09 03:40 | disposition home or self-care (01) ==
LOC: MED 20:45
DX: O46.91 Antepartum hemorrhage, unspecified, first trimester (principal); L03.011 Cellulitis of right finger; N76.0 Acute vaginitis; B96.89 Other specified bacterial agents as the cause of diseases classified elsewhere; Z3A.01 Less than 8 weeks gestation of pregnancy
CPT/HCPCS: 36415; 76856; 80048; 81003; 81025; 84702; 85025; 86900; 86901; 87210; 87491; 99285; Q0092